=== PATIENT | female | born 1955 | race Caucasian/White ===

== ENCOUNTER 2019-06-12 08:00 | Outpatient (CLI) | payer MEDICAID ==
[2019-06-12 19:15] LABS: BASOPHILS # (AUTO) 0.1 10^3/uL (0.0-0.1); EOSINOPHILS # (AUTO) 0.2 10^3/uL (0.0-0.7); EOSINOPHILS % (AUTO) 1.7 %; HGB - HEMOGLOBIN 14.4 g/dL (12.0-16.0); LYMPHOCYTES # (AUTO) 2.5 10^3/uL (1.5-3.5); LYMPHOCYTES % (AUTO) 28.1 %; MEAN CORPUSCULAR HEMOGLOBIN 30.7 pg (27.0-31.0); MEAN CORPUSCULAR VOLUME 95.9 fL (81.0-99.0); MEAN PLATELET VOLUME 10.3 fL (7.9-10.8); MONOCYTES # (AUTO) 0.6 10^3/uL (0.0-1.0); MONOCYTES % (AUTO) 6.9 %; NEUTROPHILS # (AUTO) 5.6 10^3/uL (1.5-6.6); PLT - PLATELET COUNT 415 10^3/uL (130-450); RED BLOOD COUNT 4.69 10^6/uL (4.20-5.40)
[2019-06-12 19:31] LABS: BUN - BLOOD UREA NITROGEN 12 mg/dL (6-20); CARBON DIOXIDE - CO2 26 mmol/L (21-32); CHLORIDE 103 mmol/L (101-111); CHOL/HDL RATIO 4.4 (<4.4); CHOLESTEROL 170 mg/dL; CREATININE 0.7 mg/dL (0.4-1.0); GFR - MDRD 85 (>89); GLUCOSE 92 mg/dL (70-100); HDL CHOLESTEROL 39 mg/dL; LDL CHOLESTEROL,CALCULATED 100 mg/dL; LDL/HDL RATIO 2.6 (<4.4); SODIUM 138 mmol/L (135-145); VLDL CHOLESTEROL 31 mg/dL
== END 2019-06-12 23:59 | disposition home or self-care (01) ==
LOC: EDBD → LAB.N 08:00
PROVIDERS: ATTEND Physician Assistant Medical
DX: E78.00 Pure hypercholesterolemia, unspecified (principal); I10 Essential (primary) hypertension
CPT/HCPCS: 36415; 80048; 80061; 83721; 85025

== ENCOUNTER 2019-07-27 12:00 | Emergency (ER) | payer MEDICAID ==
--- NOTE | 2019-07-27 13:25 | XRAY Report ---
Reason: cough Procedure Date: 07/27/2019 Accession Number: [id number] / [id number] Procedure: XR - Chest 2 View X-Ray CPT Code: 88865 Final Report FULL RESULT: EXAM: CHEST RADIOGRAPHY EXAM DATE: 07/27/2019 01:08 PM. CLINICAL HISTORY: Cough. COMPARISON: None. TECHNIQUE: 2 views. FINDINGS: Lungs/Pleura: Central bronchial wall thickening seen. Mild hazy right medial basilar pulmonary opacities noted. No other focal consolidation. No pleural effusion or pneumothorax. Mediastinum: Heart and mediastinal contours are unremarkable. Other: None. IMPRESSION: 1. Central bronchial wall thickening could reflect underlying reactive airways or bronchitis. 2. Mild hazy right medial basilar opacities may reflect superimposed mild pneumonia. RADIA
[2019-07-27] MEDS ORDERED: DEXAMETHASONE 10 MG/ML VIAL PO STA (13:34)
[2019-07-27] MEDS ORDERED: ALBUTEROL NEB 2.5 MG/3 ML INH STA (13:34)
[2019-07-27] MEDS ORDERED: CHERRY SYRUP 10 ML UDC PO ONE (13:34)
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
[2019-07-27 14:14] VITALS: BP 106/72
== END 2019-07-27 14:17 | disposition home or self-care (01) ==
LOC: ED 12:00
DX: T59.811A Toxic effect of smoke, accidental (unintentional), initial encounter (principal); J70.5 Respiratory conditions due to smoke inhalation; I10 Essential (primary) hypertension; F17.200 Nicotine dependence, unspecified, uncomplicated
CPT/HCPCS: 36415; 71046; 82375; 94640; 99284; A9270

== ENCOUNTER 2020-06-16 08:00 | Outpatient (CLI) | payer MEDICAID ==
[2020-06-16 18:32] LABS: BASOPHILS # (AUTO) 0.1 10^3/uL (0.0-0.1); BASOPHILS % (AUTO) 0.9 %; EOSINOPHILS # (AUTO) 0.2 10^3/uL (0.0-0.7); EOSINOPHILS % (AUTO) 1.5 %; HGB - HEMOGLOBIN 14.2 g/dL (12.0-16.0); LYMPHOCYTES # (AUTO) 2.5 10^3/uL (1.5-3.5); LYMPHOCYTES % (AUTO) 23.3 %; MEAN CORPUSCULAR HGB CONC 30.5 g/dL (32.0-36.0); MEAN CORPUSCULAR VOLUME 98.3 fL (81.0-99.0); MEAN PLATELET VOLUME 9.9 fL (7.9-10.8); MONOCYTES # (AUTO) 0.6 10^3/uL (0.0-1.0); MONOCYTES % (AUTO) 5.5 %; NEUTROPHILS # (AUTO) 7.2 10^3/uL (1.5-6.6); NEUTROPHILS % (AUTO) 68.4 %; PLT - PLATELET COUNT 463 10^3/uL (130-450); RED BLOOD COUNT 4.73 10^6/uL (4.20-5.40); RED CELL DISTRIBUTION WIDTH 13.1 % (12.0-15.0); WHITE BLOOD COUNT 10.6 x10^3/uL (4.8-10.8)
[2020-06-16 18:54] LABS: ALBUMIN 4.1 g/dL (3.2-5.5); ALBUMIN/GLOBULIN RATIO 1.4 (1.0-2.2); ALKALINE PHOSPHATASE 80 IU/L (42-121); ALT ALANINE AMINOTRANSFERASE 20 IU/L (10-60); AST ASPARTATE AMINOTRANSFERASE 19 IU/L (10-42); BILIRUBIN,TOTAL 0.4 mg/dL (0.2-1.0); BUN - BLOOD UREA NITROGEN 11 mg/dL (6-20); CALCIUM 8.9 mg/dL (8.5-10.3); CARBON DIOXIDE - CO2 25 mmol/L (21-32); CHLORIDE 101 mmol/L (101-111); CHOLESTEROL 165 mg/dL; CREATININE 0.6 mg/dL (0.4-1.0); GLUCOSE 77 mg/dL (70-100); HDL CHOLESTEROL 55 mg/dL; LDL CHOLESTEROL,CALCULATED 88 mg/dL; LDL/HDL RATIO 1.6 (<4.4); SODIUM 140 mmol/L (135-145); VLDL CHOLESTEROL 22 mg/dL
== END 2020-06-16 23:59 | disposition home or self-care (01) ==
LOC: LAB.WCP 08:00
PROVIDERS: ATTEND Internal Medicine
DX: I10 Essential (primary) hypertension (principal); E78.00 Pure hypercholesterolemia, unspecified; Z13.29 Encounter for screening for other suspected endocrine disorder
CPT/HCPCS: 36415; 80053; 80061; 83721; 84443; 85025

== ENCOUNTER 2020-06-26 15:12 | Outpatient (CLI) | payer MEDICAID ==
--- NOTE | 2020-06-26 17:17 | Ultrasound Report ---
PROCEDURE: Carotid Doppler Complete INDICATIONS: LEFT CAROTID ARTERY STENOSIS TECHNIQUE: Color and pulse Doppler interrogation was performed of both carotid systems, with image documentation and velocity measurements. COMPARISON: None. FINDINGS: Right side: Common carotid artery peak systolic velocity: 134 cm/sec. Internal carotid artery peak systolic velocity: 122 cm/sec. Internal carotid artery end diastolic velocity: 46 cm/sec. External carotid artery peak systolic velocity: 94 cm/sec. ICA/CCA peak systolic ratio: 0.9 . Arthur scale imaging description: Minimal plaque at the bifurcation. Percent internal carotid artery stenosis: Less than 50% . Vertebral artery: Flow direction is antegrade. Left side: Common carotid artery peak systolic velocity: 100 cm/sec. Internal carotid artery peak systolic velocity: 152 cm/sec. Internal carotid artery end diastolic velocity: 56 cm/sec. External carotid artery peak systolic velocity: 64 cm/sec. ICA/CCA peak systolic ratio: 1.5 . Arthur scale imaging description: Moderate plaque at the bifurcation. Percent internal carotid artery stenosis: 50-69% . Vertebral artery: Flow direction is antegrade. IMPRESSION: Less than 50% and 50-69% stenosis of the right and left internal carotid arteries respectively. The estimate of stenosis included in the report of the imaging study was calculated using the NASCET method Reviewed by: Rosi Espinoza MD on 06/26/2020 5:16 PM PST Approved by: Rosi Espinoza MD on 06/26/2020 5:16 PM PST Station ID: [id number]
== END 2020-06-26 15:13 | disposition home or self-care (01) ==
LOC: DI 15:12
PROVIDERS: ATTEND Internal Medicine
DX: I65.23 Occlusion and stenosis of bilateral carotid arteries (principal)
CPT/HCPCS: 93880

== ENCOUNTER 2020-08-27 14:04 | Outpatient (CLI) | payer MEDICAID ==
--- NOTE | 2020-08-28 10:05 | Ultrasound Report ---
PROCEDURE: Duplex Lwr Ext Arterial Bilat INDICATIONS: NOCTURNAL LEG CRAMPS TECHNIQUE: Color and pulse Doppler interrogation was performed of both lower extremity arterial systems, with im age documentation. COMPARISON: None. FINDINGS: Right lower extremity: Common femoral artery: 145.2 cm/sec, with triphasic flow. Deep femoral artery: 96.1 cm/sec, with triphasic flow. Proximal superficial femoral artery: 156.1 cm/sec, with triphasic flow. Mid superficial femoral artery: 113.3 cm/sec, with triphasic flow. Distal superficial femoral artery: 86 cm/sec, with triphasic flow. Popliteal artery: 63.4 cm/sec, with triphasic flow. Posterior tibial artery: 65.3 cm/sec, with biphasic flow. Anterior tibial artery/dorsalis pedis: 57/15.4 cm/sec, with biphasic/monophasic flow. Arthur-scale imaging description: Moderate calcific and soft plaque, probable mild focal stenosis at t he common femoral artery where mildly elevated arterial flow velocity is seen. Triphasic and biphasic flow more inferiorly is noted, with likelihood of stenosis at the ankle level involving the anterior tibial artery/dorsalis pedis junction. Left lower extremity: Common femoral artery: 119.6 cm/sec, with triphasic flow. Deep femoral artery: 137.3 cm/sec, with biphasic flow. Proximal superficial femoral artery: 102.5 cm/sec, with triphasic flow. Mid superficial femoral artery: 100.7 cm/sec, with triphasic flow. Distal superficial femoral artery: 64.2 cm/sec, with biphasic flow. Popliteal artery: 49.0 cm/sec, with biphasic flow. Posterior tibial artery: 66.8 cm/sec, with biphasic flow. Anterior tibial artery/dorsalis pedis: 68/24 cm/sec, with biphasic/biphasic flow. Arthur-scale imaging description: Moderate calcific and soft plaque involving the left lower extremity arterial vasculature. No area of high-grade stenosis suspected. Arterial insufficiency to the left l eg is not found. IMPRESSION: Asymmetric moderate calcific and soft plaque with mild arterial insufficiency to the right foot regio n and no definite visualized evidence of significant arterial insufficiency over the left lower extre mity. Reviewed by: Heri Brown MD on 08/28/2020 10:04 AM PST Approved by: Heri Brown MD on 08/28/2020 10:04 AM PST Station ID: [id number]
== END 2020-08-27 14:05 | disposition home or self-care (01) ==
LOC: DI 14:04
PROVIDERS: ATTEND Internal Medicine
DX: G47.62 Sleep related leg cramps (principal); I73.9 Peripheral vascular disease, unspecified
CPT/HCPCS: 93925

== ENCOUNTER 2020-11-25 08:00 | Outpatient (CLI) | payer MEDICAID | END 2020-11-25 23:59 | disposition home or self-care (01) | LOC: LAB.N 08:00 | PROVIDERS: ATTEND Family Medicine | DX: R50.9 Fever, unspecified (principal); M79.10 Myalgia, unspecified site; Z20.822 Contact with and (suspected) exposure to COVID-19 ==

== ENCOUNTER 2021-07-26 08:00 | Outpatient (CLI) | payer MEDICAID ==
[2021-07-26 18:13] LABS: BASOPHILS # (AUTO) 0.1 10^3/uL (0.0-0.1); BASOPHILS % (AUTO) 1.1 %; EOSINOPHILS # (AUTO) 0.1 10^3/uL (0.0-0.7); EOSINOPHILS % (AUTO) 1.2 %; HCT - HEMATOCRIT 46.7 % (37.0-47.0); HGB - HEMOGLOBIN 15.3 g/dL (12.0-16.0); LYMPHOCYTES # (AUTO) 2.6 10^3/uL (1.5-3.5); LYMPHOCYTES % (AUTO) 22.9 %; MEAN CORPUSCULAR HEMOGLOBIN 31.1 pg (27.0-31.0); MEAN CORPUSCULAR HGB CONC 32.8 g/dL (32.0-36.0); MEAN CORPUSCULAR VOLUME 94.9 fL (81.0-99.0); MEAN PLATELET VOLUME 10.4 fL (7.9-10.8); MONOCYTES # (AUTO) 0.6 10^3/uL (0.0-1.0); MONOCYTES % (AUTO) 5.5 %; NEUTROPHILS # (AUTO) 7.7 10^3/uL (1.5-6.6); NEUTROPHILS % (AUTO) 69.1 %; PLT - PLATELET COUNT 379 10^3/uL (130-450); RED BLOOD COUNT 4.92 10^6/uL (4.20-5.40); RED CELL DISTRIBUTION WIDTH 13.1 % (12.0-15.0); WHITE BLOOD COUNT 11.2 x10^3/uL (4.8-10.8)
[2021-07-26 18:25] LABS: ALBUMIN/GLOBULIN RATIO 1.4 (1.0-2.2); BILIRUBIN,TOTAL 0.5 mg/dL (0.2-1.0); CREATININE 0.7 mg/dL (0.4-1.0); POTASSIUM 4.4 mmol/L (3.5-5.0); TOTAL PROTEIN 6.9 g/dL (6.7-8.2)
[2021-07-26 18:34] LABS: THYROID STIMULATING HORMONE 1.21 uIU/mL (0.34-5.60)
== END 2021-07-26 23:59 | disposition home or self-care (01) ==
LOC: LAB.WCP 08:00
PROVIDERS: ATTEND Internal Medicine
DX: E78.5 Hyperlipidemia, unspecified (principal); Z79.899 Other long term (current) drug therapy; I10 Essential (primary) hypertension
CPT/HCPCS: 36415; 80053; 84443; 85025

== ENCOUNTER 2021-12-27 11:18 | Outpatient (CLI) | payer MEDICAID ==
[2021-12-27 18:30] LABS: ALBUMIN/GLOBULIN RATIO 1.3 (1.0-2.2); ALKALINE PHOSPHATASE 63 IU/L (42-121); ALT ALANINE AMINOTRANSFERASE 18 IU/L (10-60); AST ASPARTATE AMINOTRANSFERASE 17 IU/L (10-42); BILIRUBIN,TOTAL 0.5 mg/dL (0.2-1.0); BUN - BLOOD UREA NITROGEN 11 mg/dL (6-20); CARBON DIOXIDE - CO2 26 mmol/L (21-32); CHLORIDE 103 mmol/L (101-111); CHOL/HDL RATIO 2.7 (<4.4); CHOLESTEROL 128 mg/dL; CREATININE 0.7 mg/dL (0.4-1.0); GFR - MDRD 84 (>89); GLUCOSE 96 mg/dL (70-100); HDL CHOLESTEROL 48 mg/dL; LDL CHOLESTEROL,CALCULATED 57 mg/dL; LDL/HDL RATIO 1.2 (<4.4); POTASSIUM 4.4 mmol/L (3.5-5.0); SODIUM 138 mmol/L (135-145); TRIGLYCERIDES 115 mg/dL; VLDL CHOLESTEROL 23 mg/dL
== END 2021-12-27 11:19 | disposition home or self-care (01) ==
LOC: LAB.N 11:18
PROVIDERS: ATTEND Internal Medicine
DX: I10 Essential (primary) hypertension (principal); E78.5 Hyperlipidemia, unspecified
CPT/HCPCS: 36415; 80053; 80061; 83721

== ENCOUNTER 2022-07-25 12:09 | Outpatient (CLI) | payer MEDICAID ==
--- NOTE | 2022-07-26 12:59 | Ultrasound Report ---
PROCEDURE: Duplex Lwr Ext Arterial Bilat INDICATIONS: RAYNAUDS PHENOMENON TECHNIQUE: Color and pulse Doppler interrogation was performed of both lower extremity arterial systems, with im age documentation. COMPARISON: Lower arterial duplex dated 08/27/2020 FINDINGS: Right lower extremity: Common femoral artery: 94.5 cm/sec, with triphasic flow. Deep femoral artery: 82.4 cm/sec, with triphasic flow. Proximal superficial femoral artery: 109.7 cm/sec, with triphasic flow. Mid superficial femoral artery: 92.5 cm/sec, with triphasic flow. Distal superficial femoral artery: 96.9 cm/sec, with triphasic flow. Popliteal artery: 64.3 cm/sec, with triphasic flow. Posterior tibial artery: 76.6 cm/sec, with triphasic flow. Anterior tibial artery/dorsalis pedis: 54.4 cm/sec, with triphasic flow. Arthur-scale imaging description: Mild atheromatous plaque is present throughout. Left lower extremity: Common femoral artery: 104.7 cm/sec, with triphasic flow. Deep femoral artery: 53.7 cm/sec, with triphasic flow. Proximal superficial femoral artery: 76.0 cm/sec, with triphasic flow. Mid superficial femoral artery: 87.0 cm/sec, with triphasic flow. Distal superficial femoral artery: 73.1 cm/sec, with triphasic flow. Popliteal artery: 49.0 cm/sec, with triphasic flow. Posterior tibial artery: 55.0 cm/sec, with triphasic flow. Anterior tibial artery/dorsalis pedis: 51.1 cm/sec, with triphasic flow. Arthur-scale imaging description: Mild atheromatous plaque is present throughout. IMPRESSION: No focal hemodynamically significant stenosis. Triphasic waveforms throughout. Reviewed by: Sandra Malcolm MD on 07/26/2022 12:57 PM PST Approved by: Sandra Malcolm MD on 07/26/2022 12:57 PM PST Station ID: [id number]
== END 2022-07-25 12:10 | disposition home or self-care (01) ==
LOC: DI 12:09
PROVIDERS: ATTEND Internal Medicine
DX: I73.00 Raynaud's syndrome without gangrene (principal)
CPT/HCPCS: 93925

== ENCOUNTER 2022-07-27 11:43 | Outpatient (CLI) | payer MEDICAID ==
[2022-07-27 18:07] LABS: BASOPHILS # (AUTO) 0.1 10^3/uL (0.0-0.1); BASOPHILS % (AUTO) 0.9 %; EOSINOPHILS # (AUTO) 0.2 10^3/uL (0.0-0.7); EOSINOPHILS % (AUTO) 3.1 %; HCT - HEMATOCRIT 46.5 % (37.0-47.0); HGB - HEMOGLOBIN 14.6 g/dL (12.0-16.0); LYMPHOCYTES # (AUTO) 2.7 10^3/uL (1.5-3.5); LYMPHOCYTES % (AUTO) 34.2 %; MEAN CORPUSCULAR HEMOGLOBIN 29.9 pg (27.0-31.0); MEAN CORPUSCULAR HGB CONC 31.4 g/dL (32.0-36.0); MEAN CORPUSCULAR VOLUME 95.1 fL (81.0-99.0); MEAN PLATELET VOLUME 10.3 fL (7.9-10.8); MONOCYTES # (AUTO) 0.5 10^3/uL (0.0-1.0); MONOCYTES % (AUTO) 6.6 %; NEUTROPHILS # (AUTO) 4.3 10^3/uL (1.5-6.6); NEUTROPHILS % (AUTO) 55.1 %; PLT - PLATELET COUNT 386 10^3/uL (130-450); RED BLOOD COUNT 4.89 10^6/uL (4.20-5.40); RED CELL DISTRIBUTION WIDTH 13.2 % (12.0-15.0); WHITE BLOOD COUNT 7.8 x10^3/uL (4.8-10.8)
[2022-07-27 18:23] LABS: RHEUMATOID FACTOR NEGATIVE (Negative)
[2022-07-27 18:28] LABS: ALBUMIN/GLOBULIN RATIO 1.3 (1.0-2.2); ALKALINE PHOSPHATASE 64 IU/L (42-121); ALT ALANINE AMINOTRANSFERASE 17 IU/L (10-60); AST ASPARTATE AMINOTRANSFERASE 17 IU/L (10-42); BILIRUBIN,TOTAL 0.4 mg/dL (0.2-1.0); BUN - BLOOD UREA NITROGEN 11 mg/dL (6-20); CALCIUM 9.1 mg/dL (8.5-10.3); CARBON DIOXIDE - CO2 30 mmol/L (21-32); CHLORIDE 104 mmol/L (101-111); CHOLESTEROL 128 mg/dL; CREATININE 0.7 mg/dL (0.4-1.0); GFR - MDRD 84 (>89); GLUCOSE 102 mg/dL (70-100); HDL CHOLESTEROL 43 mg/dL; LDL CHOLESTEROL,CALCULATED 61 mg/dL; LDL/HDL RATIO 1.4 (<4.4); POTASSIUM 4.4 mmol/L (3.5-5.0); SODIUM 138 mmol/L (135-145); TRIGLYCERIDES 119 mg/dL; VLDL CHOLESTEROL 24 mg/dL
[2022-07-27 18:41] LABS: THYROID STIMULATING HORMONE 1.48 uIU/mL (0.34-5.60)
[2022-07-27 18:55] LABS: CRP - C-REACTIVE PROTEIN < 1.0 mg/dL (0-1.0)
[2022-07-27 20:48] LABS: ESTIMATED AVERAGE GLUCOSE 140 mg/dL (70-100); HEMOGLOBIN A1c% 6.5 % (4.27-6.07)
== END 2022-07-27 11:44 | disposition home or self-care (01) ==
LOC: LAB.N 11:43
PROVIDERS: ATTEND Internal Medicine
DX: G62.9 Polyneuropathy, unspecified (principal); E78.5 Hyperlipidemia, unspecified; I10 Essential (primary) hypertension; M25.50 Pain in unspecified joint
CPT/HCPCS: 36415; 80053; 80061; 81599; 82607; 82784; 83036; 83721; 84155; 84165; 84443; 85025; 85651; 86140; 86200; 86334; 86430

== ENCOUNTER 2022-07-27 11:48 | Outpatient (CLI) | payer MEDICAID ==
--- NOTE | 2022-07-27 15:10 | XRAY Report ---
PROCEDURE: Hand 3 View BILAT INDICATIONS: ARTHRALGIA TECHNIQUE: 3 views of the hand(s) acquired. COMPARISON: None FINDINGS: Bones: No fractures or dislocations. Mild joint space narrowing throughout bilateral hand and wrist joints are noted most notably in bilateral scaphotrapezial joints and first CMC joints slightly wors e on the right side. No definite bony erosive changes. No suspicious bony lesions. Soft tissues: No suspicious soft tissue calcifications. 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 No fracture or dislocation. No g ross bony erosive changes. Reviewed by: Siva Barnes MD on 07/27/2022 3:09 PM PST Approved by: Siva Barnes MD on 07/27/2022 3:09 PM PST Station ID: [id number]
--- NOTE | 2022-07-27 15:10 | XRAY Report ---
PROCEDURE: Foot 3 View BILAT INDICATIONS: ARTHRALGIA TECHNIQUE: 3 views of the foot were acquired. COMPARISON: None FINDINGS: Bones: Mild bilateral hallux valgus is seen with suggestion of mild hammertoe deformities involving bilateral second toes slightly worse on the right side. No fractures or dislocations. No suspicious bony lesions. Soft tissues: No tibiotalar joint effusion. Achilles tendon appears normal. IMPRESSION: Right worse than left bilateral mild hallux valgus and second toe hammertoe deformities. No fracture or dislocation. Reviewed by: Siva Barnes MD on 07/27/2022 3:08 PM [facility] Approved by: Siva Barnes MD on 07/27/2022 3:08 PM [facility] Station ID: [id number]
== END 2022-07-27 11:49 | disposition home or self-care (01) ==
LOC: DI.N 11:48
PROVIDERS: ATTEND Internal Medicine
DX: M19.042 Primary osteoarthritis, left hand (principal); M19.041 Primary osteoarthritis, right hand; M20.12 Hallux valgus (acquired), left foot; M20.11 Hallux valgus (acquired), right foot; M20.42 Other hammer toe(s) (acquired), left foot; M20.41 Other hammer toe(s) (acquired), right foot; G62.9 Polyneuropathy, unspecified; E78.5 Hyperlipidemia, unspecified; I10 Essential (primary) hypertension; M25.50 Pain in unspecified joint
CPT/HCPCS: 36415; 80053; 80061; 81599; 82607; 82784; 83036; 83721; 84155; 84165; 84443; 85025; 85651; 86140; 86200; 86334; 86430

== ENCOUNTER 2022-09-27 11:16 | Outpatient (CLI) | payer MEDICAID ==
[2022-09-27 18:39] LABS: CALCIUM 10.7 mg/dL (8.5-10.3); CREATININE 0.7 mg/dL (0.4-1.0); POTASSIUM 4.3 mmol/L (3.5-5.0)
[2022-09-27 18:57] LABS: CREATININE,URINE 279.8 mg/dL; MICROALBUM/CREATININE RATIO,UR 3.2 ug/mg (<30.0); MICROALBUMIN,URINE 0.9 mg/dL (0-300.0)
[2022-09-27 20:26] LABS: ESTIMATED AVERAGE GLUCOSE 140 mg/dL (70-100); HEMOGLOBIN A1c% 6.5 % (4.27-6.07)
== END 2022-09-27 11:17 | disposition home or self-care (01) ==
LOC: LAB.N 11:16
PROVIDERS: ATTEND Internal Medicine
DX: R73.03 Prediabetes (principal)
CPT/HCPCS: 36415; 80048; 82043; 82570; 83036

== ENCOUNTER 2023-01-06 14:40 | Emergency (ER) | payer MEDICARE, MEDICAID ==
--- NOTE | 2023-01-06 16:09 | ED Physician Documentation ---
History of Present Illness - Stated complaint Stated Complaint: TOOK WRONG MEDICATION - Chief complaint Chief Complaint: General - History obtained from History obtained from: Patient - Additonal information Additional information: She was prescribed amoxicillin for dental infection. She went to [facility] 2 days ago and reportedly instead of getting a prescription for amoxicillin she got a prescription for Adderall which she took twice daily and has now had 5 doses including this morning. Especially yesterday but somewhat today to she is feeling discombobulated, out of it, anxious and shaky and with difficulty talking pressured speech. This is all better at this point. PD PAST MEDICAL HISTORY - Past Medical History Cardiovascular: Hypertension, High cholesterol Respiratory: None Neuro: TIA Endocrine/Autoimmune: HyPOthyroidism GI: None : None HEENT: Chronic vision loss Psych: None Musculoskeletal: Fibromyalgia Derm: None - Past Surgical History Past Surgical History: Yes General: Appendectomy - Present Medications Home Medications: Ambulatory Orders Medication Instructions Recorded Confirmed Albuterol Sulf [Ventolin Hfa 1 - 2 puffs INH Q4HR PRN #1 inhaler 07/27/19 Inhaler] Benzonatate [Tessalon Perle] 100 - 200 mg PO TID PRN #30 capsule 07/27/19 - Allergies Allergies/Adverse Reactions: Allergies Allergy/AdvReac Type Severity Reaction Status Date / Time No Known Drug Allergies Allergy Verified 01/06/23 14:57 - Social History Does the pt smoke?: Yes Smoking Status: Current every day smoker Does the pt drink ETOH?: No Does the pt have substance abuse?: No - Immunizations Immunizations are current?: No - POLST Patient has POLST: No PD ED PE NORMAL - Vitals Vital signs reviewed: Yes - General General: Alert and oriented X 3, No acute distress - Cardiac Cardiac: RRR, No murmur - Respiratory Respiratory: No respiratory distress, Clear bilaterally - Abdomen Abdomen: Soft, Non tender - Neuro Neuro: Alert and oriented X 3, Normal speech Eye Opening: Spontaneous Motor: Obeys Commands Verbal: Oriented GCS Score: 15 - Psych Psych: Normal mood, Normal affect Results - Vitals Vitals: Vital Signs - 24 hr 01/06/23 14:49 Temperature 36.0 C L Heart Rate 88 Respiratory 18 Rate Blood Pressure 133/88 H O2 Saturation 97 Oxygen O2 Source Room air PD Medical Decision Making - ED course ED course: She was sent in by the walk-in clinic he did call me prior to arrival. At that time it sounded like she might need some anxiolysis and/or IV fluids. She says she is much better now and declines further intervention. Departure - Departure Disposition: 01 Home, Self Care Clinical Impression: Drug overdose Qualifiers: Encounter type: initial encounter Injury intent: accidental or unintentional Qualified Code(s): T50.901A - Poisoning by unspecified drugs, medicaments and biological substances, accidental (unintentional), initial encounter Condition: Good Record reviewed to determine appropriate education?: Yes Instructions: ED Overdose Accidental Comments: You should be feeling much better tomorrow. Drink plenty fluids and rest. Return for new or worsening symptoms. Follow-up with your primary care physician, next available appointment.
[2023-01-06 16:27] VITALS: BP 113/90
== END 2023-01-06 16:34 | disposition home or self-care (01) ==
LOC: ED 14:40
DX: R41.82 Altered mental status, unspecified (principal); F41.9 Anxiety disorder, unspecified; R47.02 Dysphasia; T43.621A Poisoning by amphetamines, accidental (unintentional), initial encounter; F17.200 Nicotine dependence, unspecified, uncomplicated
CPT/HCPCS: 99281; 99283

== ENCOUNTER 2023-02-28 11:19 | Outpatient (CLI) | payer MEDICARE, MEDICAID ==
[2023-02-28 18:18] LABS: BASOPHILS # (AUTO) 0.1 10^3/uL (0.0-0.1); BASOPHILS % (AUTO) 1.3 %; EOSINOPHILS # (AUTO) 0.2 10^3/uL (0.0-0.7); EOSINOPHILS % (AUTO) 2.8 %; HCT - HEMATOCRIT 43.7 % (37.0-47.0); HGB - HEMOGLOBIN 13.8 g/dL (12.0-16.0); LYMPHOCYTES # (AUTO) 2.5 10^3/uL (1.5-3.5); LYMPHOCYTES % (AUTO) 30.3 %; MEAN CORPUSCULAR HEMOGLOBIN 30.1 pg (27.0-31.0); MEAN CORPUSCULAR HGB CONC 31.6 g/dL (32.0-36.0); MEAN CORPUSCULAR VOLUME 95.4 fL (81.0-99.0); MEAN PLATELET VOLUME 10.7 fL (7.9-10.8); MONOCYTES # (AUTO) 0.6 10^3/uL (0.0-1.0); MONOCYTES % (AUTO) 6.9 %; NEUTROPHILS # (AUTO) 4.9 10^3/uL (1.5-6.6); NEUTROPHILS % (AUTO) 58.3 %; PLT - PLATELET COUNT 366 10^3/uL (130-450); RED BLOOD COUNT 4.58 10^6/uL (4.20-5.40); RED CELL DISTRIBUTION WIDTH 13.2 % (12.0-15.0); WHITE BLOOD COUNT 8.3 x10^3/uL (4.8-10.8)
[2023-02-28 18:26] LABS: ALBUMIN 3.6 g/dL (3.2-5.5); ALBUMIN/GLOBULIN RATIO 1.2 (1.0-2.2); ALKALINE PHOSPHATASE 63 IU/L (42-121); ALT ALANINE AMINOTRANSFERASE 21 IU/L (10-60); AST ASPARTATE AMINOTRANSFERASE 19 IU/L (10-42); BILIRUBIN,TOTAL 0.4 mg/dL (0.2-1.0); BUN - BLOOD UREA NITROGEN 11 mg/dL (6-20); CALCIUM 8.7 mg/dL (8.5-10.3); CARBON DIOXIDE - CO2 27 mmol/L (21-32); CHLORIDE 103 mmol/L (101-111); CHOL/HDL RATIO 2.5 (<4.4); CHOLESTEROL 124 mg/dL; CREATININE 0.6 mg/dL (0.4-1.0); GFR - MDRD 100 (>89); GLUCOSE 89 mg/dL (70-100); HDL CHOLESTEROL 49 mg/dL; LDL CHOLESTEROL,CALCULATED 56 mg/dL; LDL/HDL RATIO 1.1 (<4.4); POTASSIUM 4.1 mmol/L (3.5-5.0); SODIUM 138 mmol/L (135-145); TOTAL PROTEIN 6.6 g/dL (6.7-8.2); TRIGLYCERIDES 97 mg/dL; VLDL CHOLESTEROL 19 mg/dL
[2023-02-28 18:39] LABS: CREATININE,URINE 23.6 mg/dL
[2023-02-28 18:40] LABS: MICROALBUMIN,URINE < 0.2 mg/dL (0-300.0)
[2023-02-28 20:40] LABS: ESTIMATED AVERAGE GLUCOSE 131 mg/dL (70-100); HEMOGLOBIN A1c% 6.2 % (4.27-6.07)
== END 2023-02-28 11:20 | disposition home or self-care (01) ==
LOC: LAB.N 11:19
PROVIDERS: ATTEND Internal Medicine
DX: E78.5 Hyperlipidemia, unspecified (principal); R73.03 Prediabetes; I10 Essential (primary) hypertension
CPT/HCPCS: 36415; 80053; 80061; 82043; 82570; 83036; 83721; 85025

== ENCOUNTER 2023-08-02 10:37 | Outpatient (CLI) | payer MEDICARE, MEDICAID ==
[2023-08-02 18:19] LABS: CALCIUM 9.2 mg/dL (8.5-10.3); CREATININE 0.6 mg/dL (0.6-1.3); POTASSIUM 4.2 mmol/L (3.5-4.5)
[2023-08-02 20:20] LABS: ESTIMATED AVERAGE GLUCOSE 137 mg/dL (70-100); HEMOGLOBIN A1c% 6.4 % (4.27-6.07)
== END 2023-08-02 10:38 | disposition home or self-care (01) ==
LOC: LAB.N 10:37
PROVIDERS: ATTEND Internal Medicine
DX: R73.03 Prediabetes (principal)
CPT/HCPCS: 36415; 80048; 83036

== ENCOUNTER 2024-01-29 11:04 | Outpatient (CLI) | payer MEDICARE, MEDICAID ==
[2024-01-29 17:30] LABS: BASOPHILS # (AUTO) 0.1 10^3/uL (0.0-0.1); BASOPHILS % (AUTO) 1.1 %; EOSINOPHILS # (AUTO) 0.3 10^3/uL (0.0-0.7); EOSINOPHILS % (AUTO) 3.3 %; HCT - HEMATOCRIT 45.2 % (37.0-47.0); HGB - HEMOGLOBIN 14.1 g/dL (12.0-16.0); LYMPHOCYTES # (AUTO) 2.8 10^3/uL (1.5-3.5); LYMPHOCYTES % (AUTO) 36.1 %; MEAN CORPUSCULAR HEMOGLOBIN 30.1 pg (27.0-31.0); MEAN CORPUSCULAR HGB CONC 31.2 g/dL (32.0-36.0); MEAN CORPUSCULAR VOLUME 96.4 fL (81.0-99.0); MEAN PLATELET VOLUME 10.9 fL (7.9-10.8); MONOCYTES # (AUTO) 0.6 10^3/uL (0.0-1.0); MONOCYTES % (AUTO) 7.4 %; NEUTROPHILS # (AUTO) 4.1 10^3/uL (1.5-6.6); PLT - PLATELET COUNT 360 10^3/uL (130-450); RED BLOOD COUNT 4.69 10^6/uL (4.20-5.40); RED CELL DISTRIBUTION WIDTH 13.3 % (12.0-15.0); WHITE BLOOD COUNT 7.9 x10^3/uL (4.8-10.8)
[2024-01-29 17:55] LABS: CREATININE,URINE 102.7 mg/dL
[2024-01-29 17:58] LABS: ALBUMIN 4.1 g/dL (3.2-5.5); ALBUMIN/GLOBULIN RATIO 1.6 (1.0-2.2); ALKALINE PHOSPHATASE 73 IU/L (42-121); ALT ALANINE AMINOTRANSFERASE 15 IU/L (10-60); AST ASPARTATE AMINOTRANSFERASE 17 IU/L (10-42); BILIRUBIN,TOTAL 0.3 mg/dL (0.2-1.0); BUN - BLOOD UREA NITROGEN 10 mg/dL (6-20); CALCIUM 9.4 mg/dL (8.5-10.3); CARBON DIOXIDE - CO2 30 mmol/L (21-32); CHLORIDE 106 mmol/L (101-111); CHOL/HDL RATIO 2.8 (<4.4); CHOLESTEROL 129 mg/dL; CREATININE 0.6 mg/dL (0.6-1.3); GFR - MDRD 100 (>89); GLUCOSE 109 mg/dL (74-104); HDL CHOLESTEROL 46 mg/dL; LDL CHOLESTEROL,CALCULATED 54 mg/dL; LDL/HDL RATIO 1.2 (<4.4); POTASSIUM 4.2 mmol/L (3.5-4.5); SODIUM 141 mmol/L (135-145); THYROID STIMULATING HORMONE 1.58 uIU/mL (0.34-5.60); TOTAL PROTEIN 6.7 g/dL (6.4-8.9); TRIGLYCERIDES 147 mg/dL (48-352); VLDL CHOLESTEROL 29 mg/dL
[2024-01-29 17:59] LABS: MICROALBUMIN,URINE < 0.7 mg/dL
[2024-01-29 20:28] LABS: ESTIMATED AVERAGE GLUCOSE 134 mg/dL (70-100); HEMOGLOBIN A1c% 6.3 % (4.27-6.07)
== END 2024-01-29 11:05 | disposition home or self-care (01) ==
LOC: LAB.N 11:04
PROVIDERS: ATTEND Internal Medicine
DX: E78.5 Hyperlipidemia, unspecified (principal); R73.03 Prediabetes; G62.9 Polyneuropathy, unspecified; I65.22 Occlusion and stenosis of left carotid artery
CPT/HCPCS: 36415; 80053; 80061; 82043; 82570; 83036; 83721; 84443; 85025

== ENCOUNTER 2024-02-29 12:13 | Outpatient (CLI) | payer MEDICARE, MEDICAID ==
--- NOTE | 2024-02-29 14:48 | XRAY Report ---
PROCEDURE: Knee 3V BL INDICATIONS: KNEE JOINT PAIN > 3 MONTHS, BILATERAL TECHNIQUE: 4 views of the knee(s) were acquired. COMPARISON: None. FINDINGS: Bones: Mild bilateral degenerative changes, especially in the medial compartment. No acute displaced fracture or dislocation. Soft tissues: Small bilateral joint effusions. Possible small intra-articular bodies. IMPRESSION: Mild degenerative changes and small joint effusions. If there is high concern for further derangement, consider MRI evaluation. Reviewed by: Wilmer Gregory MD on 02/29/2024 2:47 PM PDT Approved by: Wilmer Gregory MD on 02/29/2024 2:47 PM PDT Station ID: [id number]
== END 2024-02-29 12:14 | disposition home or self-care (01) ==
LOC: DI.N 12:13
PROVIDERS: ATTEND Internal Medicine
DX: M17.0 Bilateral primary osteoarthritis of knee (principal); M25.461 Effusion, right knee; M25.462 Effusion, left knee